=== PATIENT | male | born 1945 | race Caucasian/White ===

== ENCOUNTER 2019-04-01 06:36 | Day surgery (SDC) | payer OTHER ==
[~2019-04-01] VITALS: Ht 175.3 cm; Wt 84.6 kg
[~2019-04-01 06:36] MED LIST: ASPI81CH; CIPR500 PO; ERGO400; FINA5; FLUC200 PO; SULTRISS PO; TAMS.4ER PO
--- NOTE | 2019-04-01 08:23 | NUR ---
04/01/19 0823 Maryan Chandler SIMETHICONE USED DURING PROCEDURE.
--- NOTE | 2019-04-01 08:58 | NUR ---
04/01/19 0858 Maryan Chandler PT DENIES ALLERGY TO FLONASE & REQUESTS THIS RN TO REMOVE FROM ALLERGY LIST.
== END 2019-04-01 09:32 | disposition home or self-care (01) ==
LOC: ORSCSDS 06:36
PROVIDERS: Internal Medicine Gastroenterology
PROC: 0DBL8ZX Excision of Transverse Colon, Via Natural or Artificial Opening Endoscopic, Diagnostic (ICD-10-PCS; principal; 2019-04-01 08:00)
DX: Z12.11 Encounter for screening for malignant neoplasm of colon (principal); D12.3 Benign neoplasm of transverse colon; K64.8 Other hemorrhoids; Z86.010 Personal history of colon polyps; Z80.0 Family history of malignant neoplasm of digestive organs; I10 Essential (primary) hypertension; N40.0 Benign prostatic hyperplasia without lower urinary tract symptoms
CPT/HCPCS: 88305; J0330; J0461; J2405; J2704; J7120

== ENCOUNTER → 2019-11-05 | Outpatient (CLI) | payer OTHER | END | disposition home or self-care (01) | LOC: PLD 11:28 → LAB SHORT 11:28 | DX: L57.0 Actinic keratosis (principal); L57.8 Other skin changes due to chronic exposure to nonionizing radiation | CPT/HCPCS: 88305 ==

== ENCOUNTER 2020-11-20 13:56 | Emergency (ER) | payer OTHER ==
[~2020-11-20] VITALS: Ht 175.3 cm; Wt 83.0 kg
[2020-11-20 16:12] LABS: Source, Urine Catheter
[2020-11-20 16:33] LABS: Appearance, Urine Bloody (Clear); Bilirubin, Urine Neg (Neg); Blood, Urine 5+ (Neg); Color, Urine Red (P-Yellow); Glucose Qualitative, Urine Neg (Neg); Ketones, Urine Neg (Neg); Leukocyte Esterase, Urine 1+ (Neg); Nitrite, Urine Neg (Neg); Protein, Urine 4+ (Neg); Specific Gravity, Urine 1.015 (1.003-1.022); Urobilinogen, Urine NORM (Normal)
[2020-11-20 16:37] LABS: Bacteria Mod /hpf; Red Blood Cells, Urine TNTC /hpf (0-2); Squamous Epithelial Cells Rare /hpf (Few)
== END 2020-11-20 17:00 | disposition home or self-care (01) ==
LOC: ER 13:56
PROVIDERS: Physician Assistant
DX: R33.9 Retention of urine, unspecified (principal)
CPT/HCPCS: 51702; 51798; 81001; 87086; 99283-25

== ENCOUNTER 2020-12-01 15:34 | Emergency (ER) | payer OTHER ==
[~2020-12-01] VITALS: Ht 175.3 cm; Wt 81.7 kg
[2020-12-01] MEDS ORDERED: PYRIDIUM200 MG PO (16:07)
[2020-12-01] MEDS ORDERED: OXYC5 PO (16:08)
[2020-12-01] MEDS ORDERED: SULFAMETHOXAZO1 EAC1 PO (16:08)
== END 2020-12-01 16:27 | disposition home or self-care (01) ==
LOC: ER 15:34
DX: R33.9 Retention of urine, unspecified (principal); R10.30 Lower abdominal pain, unspecified; Z98.890 Other specified postprocedural states
CPT/HCPCS: 51702; 51798; 87086; 99283

== ENCOUNTER 2021-03-30 10:47 | Day surgery (SDC) | payer OTHER ==
[~2021-03-30] VITALS: Ht 175.3 cm; Wt 84.6 kg
[~2021-03-30 10:47] MED LIST changes: +ATOR10 PO; +Aspir 8181 MG PO; +FISH OIL-VIT D1 EACH PO; +HYDCHL25 PO; +LOSA25 PO; +OXYC5 PO; +PYRIDIUM200 MG PO; +SULFAMETHOXAZO1 EAC1 PO; +Vitamin D1000 UNI1 PO
== END 2021-03-30 13:12 | disposition home or self-care (01) ==
LOC: ORSCSDS 10:47
PROVIDERS: Internal Medicine Gastroenterology
PROC: 0DBH8ZX Excision of Cecum, Via Natural or Artificial Opening Endoscopic, Diagnostic (ICD-10-PCS; principal; 2021-03-30 12:00)
PROC: 0DBL8ZX Excision of Transverse Colon, Via Natural or Artificial Opening Endoscopic, Diagnostic (ICD-10-PCS; principal; 2021-03-30 12:00)
PROC: 0DBN8ZX Excision of Sigmoid Colon, Via Natural or Artificial Opening Endoscopic, Diagnostic (ICD-10-PCS; principal; 2021-03-30 12:00)
PROC: 0DBK8ZX Excision of Ascending Colon, Via Natural or Artificial Opening Endoscopic, Diagnostic (ICD-10-PCS; principal; 2021-03-30 12:00)
DX: Z12.11 Encounter for screening for malignant neoplasm of colon (principal); Z86.010 Personal history of colon polyps; D12.0 Benign neoplasm of cecum; D12.2 Benign neoplasm of ascending colon; D12.3 Benign neoplasm of transverse colon; K63.5 Polyp of colon; K64.4 Residual hemorrhoidal skin tags; Z79.82 Long term (current) use of aspirin; Z79.899 Other long term (current) drug therapy
CPT/HCPCS: 88305; J2704; J7120

== ENCOUNTER 2023-11-25 20:23 | Emergency (ER) | payer OTHER ==
[~2023-11-25] VITALS: Ht 175.3 cm; Wt 82.5 kg
[2023-11-25 21:27] LABS: BASOPHILS ABSOLUTE AUTO 0.05 K/mm3 (0.00-0.23); BASOPHILS PERCENT AUTO 0 % (0-2); EOSINOPHILS ABSOLUTE AUTO 0.01 K/mm3 (0.00-0.68); EOSINOPHILS PERCENT AUTO 0 % (0-6); Hematocrit 42.7 % (37.0-53.0); Hemoglobin 14.5 g/dL (13.5-17.5); IMMATURE GRAN ABSOLUTE AUTO 0.04 K/mm3 (0.00-0.10); IMMATURE GRAN PERCENT AUTO 0 % (0-1); LYMPHOCYTES ABSOLUTE AUTO 1.66 K/mm3 (0.84-5.20); LYMPHOCYTES PERCENT AUTO 12 % (21-46); MONOCYTES ABSOLUTE AUTO 0.87 K/mm3 (0.16-1.47); MONOCYTES PERCENT AUTO 6 % (4-13); Mean Corpuscular HGB 28.4 pg (26.0-34.0); Mean Corpuscular Volume 84 fL (80-100); Mean Platelet Volume 10.9 fL (9.1-12.4); NEUTROPHILS ABSOLUTE AUTO 11.44 K/mm3 (1.96-9.15); NEUTROPHILS PERCENT AUTO 81 % (41-73); Platelet Count 274 K/mm3 (150-400); RDW Standard Deviation 43.1 fL (35.1-46.3); Red Blood Cell Count 5.11 M/mm3 (4.30-5.90); White Blood Cell Count 14.07 K/mm3 (4.00-11.30)
[2023-11-25 21:43] LABS: Albumin/Globulin Ratio 1.1 (0.8-1.8); Bilirubin, Total 0.7 mg/dL (0.1-1.0); Bun/Creatinine Ratio 16.9 (12.0-20.0); Calcium, Blood 9.7 mg/dL (8.5-10.1); Creatinine, Blood 1.18 mg/dL (0.60-1.20); Globulin, Blood 3.8 g/dL (2.2-4.0); Total Protein, Blood 7.8 g/dL (6.4-8.2)
[2023-11-25 22:03] LABS: Source, Urine Clean Catch
[2023-11-25 22:07] LABS: Bilirubin, Urine Neg (Neg); Blood, Urine 5+ (Neg); Glucose Qualitative, Urine Neg (Neg); Ketones, Urine 1+ (Neg); Leukocyte Esterase, Urine 2+ (Neg); Nitrite, Urine Neg (Neg); Protein, Urine 1+ (Neg); Specific Gravity, Urine 1.015 (1.003-1.022); Urobilinogen, Urine NORM (Normal)
[2023-11-25 22:13] LABS: Appearance, Urine Hazy (Clear); Color, Urine Yellow (P-Yellow)
[2023-11-25 22:15] LABS: Amorphous Mod (0-Heavy); Bacteria Few /hpf; Red Blood Cells, Urine TNTC /hpf (0-2); Squamous Epithelial Cells Rare /hpf (Few); White Blood Cells, Urine 25-50 /hpf (0-5)
[2023-11-25] MEDS ORDERED: Cephalexin Monohydrate 500 MG Cap PO ONE (22:30)
[2023-11-25] MEDS ORDERED: CEPH500 PO (22:30)
[2023-11-25 22:48] VITALS: BP 154/78
== END 2023-11-25 22:50 | disposition home or self-care (01) ==
LOC: ER 20:23
PROVIDERS: Anesthesiology
DX: R82.81 Pyuria (principal); R31.9 Hematuria, unspecified; D72.829 Elevated white blood cell count, unspecified; R73.9 Hyperglycemia, unspecified; Z79.82 Long term (current) use of aspirin; Z79.899 Other long term (current) drug therapy
CPT/HCPCS: 80053; 81001; 84484; 85025; 87077; 87086; 87186; 93005; 93010; 99284-25; A9270

== ENCOUNTER 2024-05-21 10:45 | Day surgery (SDC) | payer OTHER ==
[~2024-05-21] VITALS: Ht 175.3 cm; Wt 81.8 kg
[~2024-05-21 10:45] MED LIST changes: +Atropine Sulfate 0.1 MG/ML 10ML SYR ONE; +CEPH500 PO; +Glycopyrrolate 0.2 MG/ML 1MLVIAL ONE; +Lactated Ringer's 1,000 ML IV ONE; +Lidocaine 2% 5 ML SDV ONE; +Lidocaine HCl/Pf 1% 5 ML VIAL ONE; +Methylene Blue 1% 100 MG/10 ML VIAL ONE; +Ondansetron HCl 2 MG / ML 2ML Vial ONE; +ePHEDrine Sulfate 50 MG/ML 1ML Injection ONE; +propofoL 50 ML IV ONE
[2024-05-21] MEDS ORDERED: Lactated Ringer's 1,000 ML IV ONE (11:04)
[2024-05-21 14:12] VITALS: BP 128/68
== END 2024-05-21 14:00 | disposition home or self-care (01) ==
LOC: ORSCSDS 10:45
PROVIDERS: Internal Medicine Gastroenterology
PROC: 0DBH8ZX Excision of Cecum, Via Natural or Artificial Opening Endoscopic, Diagnostic (ICD-10-PCS; principal; 2024-05-21 12:15)
DX: Z12.11 Encounter for screening for malignant neoplasm of colon (principal); Z86.0101 Personal history of adenomatous and serrated colon polyps; D12.0 Benign neoplasm of cecum; I10 Essential (primary) hypertension; I25.10 Atherosclerotic heart disease of native coronary artery without angina pectoris; Z86.73 Personal history of transient ischemic attack (TIA), and cerebral infarction without residual deficits; Z79.899 Other long term (current) drug therapy; Z79.82 Long term (current) use of aspirin
CPT/HCPCS: 88305; J0461; J2003; J2405; J2704; J7120; Q9968

== ENCOUNTER 2024-05-27 10:27 | Day surgery (SDC) | payer OTHER ==
[~2024-05-27] VITALS: Ht 175.3 cm; Wt 82.6 kg
[~2024-05-27 10:27] MED LIST changes: -Atropine Sulfate 0.1 MG/ML 10ML SYR ONE; +Balanced Salt Epinephrine Irrigation Solution 500 mL IR SCH; -Glycopyrrolate 0.2 MG/ML 1MLVIAL ONE; -Lactated Ringer's 1,000 ML IV ONE; -Lidocaine 2% 5 ML SDV ONE; -Lidocaine HCl/Pf 1% 5 ML VIAL ONE; +Lidocaine HCl/Pf 1% 5 ML VIAL XX SCH; -Methylene Blue 1% 100 MG/10 ML VIAL ONE; +Moxifloxacin HCL 0.5 MG/0.1 ML 0.4MLSYR RIGHTEYE SCH; -Ondansetron HCl 2 MG / ML 2ML Vial ONE; +PHENYLEPHRINE\\TROPICAMIDE\\TETRACAINE OPHTHALMIC DILATING SOLN RIGHTEYE PRN; +Povidone-Iodine 450 DROP/30 ML Solution ONE; +Povidone-Iodine 450 DROP/30 ML Solution RIGHTEYE SCH; +Tetracaine HCl/Pf 0.5% Opth Soln 4 ml ONE; -ePHEDrine Sulfate 50 MG/ML 1ML Injection ONE; -propofoL 50 ML IV ONE
[2024-05-27] MEDS ORDERED: Diazepam 2 MG Tab ONE (10:45)
--- NOTE | 2024-05-27 11:04 | NUR ---
05/27/24 1104 Mayuri Jean PATIENT RATES ANXIETY AT 0/10 PRIOR TO ADMINISTRATION OF VALIUM 4MG PO X1 AT 11:00. STATES HE DOES NOT FEEL ANXIOUS AT ALL.
[2024-05-27 12:11] VITALS: BP 154/74
== END 2024-05-27 12:38 | disposition home or self-care (01) ==
LOC: ORSCSDS 10:27
PROVIDERS: Student in an Organized Health Care Education/Training Program
PROC: 08RJ3JZ Replacement of Right Lens with Synthetic Substitute, Percutaneous Approach (ICD-10-PCS; principal; 2024-05-27 12:00)
DX: H25.813 Combined forms of age-related cataract, bilateral (principal); I10 Essential (primary) hypertension; E78.5 Hyperlipidemia, unspecified; Z79.899 Other long term (current) drug therapy; Z79.82 Long term (current) use of aspirin
CPT/HCPCS: A9270; V2632

== ENCOUNTER 2025-04-07 07:53 | Day surgery (SDC) | payer OTHER ==
[~2025-04-07] VITALS: Ht 175.3 cm; Wt 81.5 kg
[~2025-04-07 07:53] MED LIST changes: -Lidocaine HCl/Pf 1% 5 ML VIAL XX SCH; +Moxifloxacin HCL 0.5 MG/0.1 ML 0.4MLSYR LEFTEYE SCH; -Moxifloxacin HCL 0.5 MG/0.1 ML 0.4MLSYR RIGHTEYE SCH; +NS 500 ML IV ONE; +PHENYLEPHRINE\\TROPICAMIDE\\TETRACAINE OPHTHALMIC DILATING SOLN LEFTEYE PRN; -PHENYLEPHRINE\\TROPICAMIDE\\TETRACAINE OPHTHALMIC DILATING SOLN RIGHTEYE PRN; +Povidone-Iodine 450 DROP/30 ML Solution LEFTEYE SCH; -Povidone-Iodine 450 DROP/30 ML Solution RIGHTEYE SCH
[2025-04-07] MEDS ORDERED: NS 500 ML IV ONE (08:39)
--- NOTE | 2025-04-07 08:40 | NUR ---
04/07/25 0840 Marisa Van CALL LIGHT WITHIN REACH. EYE DROPS IN AROUND 0836
[2025-04-07] MEDS ORDERED: FentaNYL Citrate 50 MCG/ML 2 ML Injection ONE (08:41)
[2025-04-07] MEDS ORDERED: Midazolam HCl 1MG / ML 2ML Vial ONE (08:41)
[2025-04-07 10:18] VITALS: BP 168/96
== END 2025-04-07 10:25 | disposition home or self-care (01) ==
LOC: ORSCSDS 07:53
PROVIDERS: Student in an Organized Health Care Education/Training Program
PROC: 08RK3JZ Replacement of Left Lens with Synthetic Substitute, Percutaneous Approach (ICD-10-PCS; principal; 2025-04-07 09:30)
DX: H25.812 Combined forms of age-related cataract, left eye (principal); H52.202 Unspecified astigmatism, left eye; Z96.1 Presence of intraocular lens; I10 Essential (primary) hypertension; K21.9 Gastro-esophageal reflux disease without esophagitis; Z79.82 Long term (current) use of aspirin; Z79.899 Other long term (current) drug therapy
CPT/HCPCS: J2250; J3010; J7040; V2632